=== PATIENT | female | born 1985 | race Caucasian/White ===

== ENCOUNTER → 2018-12-24 | Outpatient (REF) | payer OTHER ==
[~2018-12-24] MED LIST: COLA100C5 PO; MAPA500T2 PO; METH0.2T53 PO; STUACAP PO; VITAPRTA PO
[2018-12-26 14:27] LABS: HPV HYBRID CAPTURE II Negative (Negative)
== END ==
LOC: M LAB REF 13:27
PROVIDERS: ATTEND Advanced Practice Midwife
DX: Z12.4 Encounter for screening for malignant neoplasm of cervix (principal)

== ENCOUNTER 2019-03-13 07:45 | Outpatient (RCR) | payer OTHER | END 2019-03-19 | LOC: M PT 07:45 | PROVIDERS: ATTEND Family Medicine | DX: Z51.89 Encounter for other specified aftercare (principal); M53.3 Sacrococcygeal disorders, not elsewhere classified; M54.32 Sciatica, left side ==

== ENCOUNTER 2019-04-16 07:45 | Outpatient (RCR) | payer OTHER | END 2019-04-19 | LOC: M PT 07:45 | PROVIDERS: ATTEND Family Medicine | DX: Z51.89 Encounter for other specified aftercare (principal); M53.3 Sacrococcygeal disorders, not elsewhere classified; M54.32 Sciatica, left side ==

== ENCOUNTER 2019-04-22 08:27 | Outpatient (RCR) | payer OTHER | END 2019-05-19 | LOC: M PT 08:27 | PROVIDERS: ATTEND Family Medicine | DX: Z51.89 Encounter for other specified aftercare (principal); M53.3 Sacrococcygeal disorders, not elsewhere classified; M54.32 Sciatica, left side ==

== ENCOUNTER → 2019-04-29 | Outpatient (CLI) | payer OTHER ==
--- NOTE | 2019-04-29 11:09 | REP ---
FLANK SOFT TISSUE ULTRASOUND: Real-time sonographic evaluation of the flank soft tissues performed with attention paid to the left lower back soft tissues at the site of a reported palpable abnormality. There is no sonographic evidence of a cystic or solid nodule. If there is continued clinical concern for an underlying soft tissue mass, MRI with and without contrast would be recommended. Electronically Signed by Dm Vickers MD 04/30/2019 11:16 A
== END ==
LOC: M RAD 09:31
PROVIDERS: ATTEND Family Medicine
DX: R22.2 Localized swelling, mass and lump, trunk (principal)

== ENCOUNTER → 2021-09-30 | Outpatient (REF) | payer OTHER, BC ==
[2021-09-30 12:33] LABS: BLOOD UREA NITROGEN 9 MG/DL (7-18); CREATININE FOR GFR 0.77 MG/DL (0.55-1.30); GLOMERULAR FILTRATION RATE > 60.0 (>60); GLUCOSE, FASTING 82 MG/DL (70-100); SODIUM LEVEL 141 MEQ/L (136-145)
[2021-09-30 12:34] LABS: ALBUMIN 3.9 GM/DL (3.2-5.2); ALT/SGPT 17 U/L (12-78); BILIRUBIN,TOTAL 0.5 MG/DL (0.2-1.0); CALCIUM LEVEL 9.1 MG/DL (8.5-10.1); CARBON DIOXIDE LEVEL 26 MEQ/L (21-32); CHLORIDE LEVEL 107 MEQ/L (98-107); CHOLESTEROL LEVEL 207 MG/DL (<200); HDL CHOLESTEROL 79 MG/DL (>40); LDL CHOLESTEROL 98 MG/DL (<100); NON-HDL-C 128 MG/DL; POTASSIUM SERUM 3.9 MEQ/L (3.5-5.1); TOTAL PROTEIN 6.9 GM/DL (6.4-8.2); TRIGLYCERIDES LEVEL 152 MG/DL (<150)
== END ==
LOC: M SFHCPLAZ 11:49
PROVIDERS: ATTEND Family Medicine
DX: Z13.220 Encounter for screening for lipoid disorders (principal); Z13.1 Encounter for screening for diabetes mellitus

== ENCOUNTER → 2021-10-06 | Outpatient (REF) | payer BC, OTHER | LOC: M LAB REF 12:04 | PROVIDERS: ATTEND Family Medicine | DX: F41.1 Generalized anxiety disorder (principal) ==

== ENCOUNTER → 2022-02-15 | Outpatient (REF) | payer BC, OTHER | LOC: M SFHCWAGY 13:00 | PROVIDERS: ATTEND Obstetrics & Gynecology | DX: Z12.4 Encounter for screening for malignant neoplasm of cervix (principal) | CPT/HCPCS: 87624; G0123 ==

== ENCOUNTER 2024-03-06 12:57 | Emergency (ER) | payer BC, OTHER ==
[~2024-03-06] VITALS: Ht 167.6 cm; Wt 84.5 kg
[2024-03-06] MEDS ORDERED: TRI-TAB16 (13:08)
[2024-03-06 13:36] LABS: BASO # 0.1 10^3/uL (0.0-0.2); BASO % 0.5 % (0.0-1.0); EOS % 0.3 % (0.0-3.0); HEMATOCRIT 41.7 % (36.0-47.0); HEMOGLOBIN 14.3 g/dl (12.0-15.5); LYMPH # 2.6 10^3/uL (1.5-5.0); LYMPH % 28.1 % (24.0-44.0); MEAN CORPUSCULAR HEMOGLOBIN 30.4 pg (27.0-33.0); MEAN CORPUSCULAR HGB CONC 34.3 g/dl (32.0-36.5); MEAN CORPUSCULAR VOLUME 88.5 fl (80.0-96.0); MONO # 0.5 10^3/uL (0.0-0.8); MONO % 5.2 % (2.0-8.0); NEUTROPHILS % 65.6 % (36.0-66.0); PLATELET COUNT, AUTOMATED 236 10^3/uL (150-450); RED BLOOD COUNT 4.71 10^6/uL (4.00-5.40); WHITE BLOOD COUNT 9.1 10^3/uL (4.0-10.0)
[2024-03-06 14:02] LABS: CK-MB VALUE MASS < 1.0 NG/ML (<3.6)
[2024-03-06 14:06] LABS: BLOOD UREA NITROGEN 10 MG/DL (9-23); CALCIUM LEVEL 9.6 MG/DL (8.5-10.1); CARBON DIOXIDE LEVEL 26 MMOL/L (20-31); CHLORIDE LEVEL 107 MMOL/L (98-107); CREATININE FOR GFR 0.75 MG/DL (0.55-1.30); GLOMERULAR FILTRATION RATE > 60.0 (>60); GLUCOSE, FASTING 87 MG/DL (60-100); POTASSIUM SERUM 4.4 MMOL/L (3.5-5.1); SODIUM LEVEL 140 MMOL/L (136-145); THYROID STIMULATING HORMONE 1.631 uIU/ML (0.55-4.78)
[2024-03-06 14:12] LABS: CPK CREATINE PHOSPHOKINASE 22 U/L (34-145); MB/CK RELATIVE INDEX 4.54 (< OR =4)
[2024-03-06 15:25] LABS: CK-MB VALUE MASS < 1.0 NG/ML (<3.6)
[2024-03-06 15:26] LABS: CPK CREATINE PHOSPHOKINASE 18 U/L (34-145); MB/CK RELATIVE INDEX 5.55 (< OR =4)
[2024-03-06 17:30] VITALS: BP 152/84
[2024-03-06 17:42] VITALS: TEMP 99.2; O2SAT 100
== END 2024-03-06 17:55 | disposition home or self-care (01) ==
LOC: M ED 12:57
DX: R00.2 Palpitations (principal); F17.200 Nicotine dependence, unspecified, uncomplicated; F12.10 Cannabis abuse, uncomplicated; F10.10 Alcohol abuse, uncomplicated; F41.9 Anxiety disorder, unspecified; Z79.899 Other long term (current) drug therapy

== ENCOUNTER → 2025-05-15 | Outpatient (CLI) | payer BC ==
[~2025-05-15] MED LIST changes: +TRI-TAB16
[2025-05-15 14:56] LABS: ALT/SGPT 16 U/L (7.0-40); AST/SGOT 18 U/L (<34); CALCIUM LEVEL 8.9 MG/DL (8.5-10.1); CARBON DIOXIDE LEVEL 27 MMOL/L (20-31); CHLORIDE LEVEL 107 MMOL/L (98-107); CHOLESTEROL LEVEL 227 MG/DL (<200); CHOLESTEROL RISK RATIO 3.02 (<5); CREATININE FOR GFR 0.77 MG/DL (0.55-1.30); GLOMERULAR FILTRATION RATE > 90.0 (>60); LDL CHOLESTEROL 131.1 MG/DL (<100); NON-HDL-C 151.9 MG/DL; PLATELET COUNT, AUTOMATED 212 10^3/uL (150-450); POTASSIUM SERUM 4.4 MMOL/L (3.5-5.1); SODIUM LEVEL 140 MMOL/L (136-145); TRIGLYCERIDES LEVEL 104 MG/DL (<150)
[2025-05-15 15:00] LABS: FREE T4 1.01 NG/DL (0.89-1.76)
[2025-05-15 15:36] LABS: ESTIMATED AVERAGE GLUCOSE 103.0 MG/DL (60-110)
== END ==
LOC: M PLAIMG 07:17
DX: M54.10 Radiculopathy, site unspecified (principal); J32.9 Chronic sinusitis, unspecified; E66.09 Other obesity due to excess calories; Z13.29 Encounter for screening for other suspected endocrine disorder; Z13.1 Encounter for screening for diabetes mellitus

== ENCOUNTER → 2025-06-22 | Outpatient (CLI) | payer BC | LOC: M RAD 17:02 | PROVIDERS: ATTEND Physician Assistant | DX: J32.8 Other chronic sinusitis (principal) ==